=== PATIENT | male | born 1965 | race Caucasian/White ===

== ENCOUNTER → 2016-11-08 | Day surgery (SDC) | payer SELFPAY ==
[~2016-11-08] VITALS: Ht 172.7 cm; Wt 94.8 kg
[2016-11-08 08:02] LABS: HCT 41.8 % (42.0-52.0); HGB 15.2 g/dl (13.2-18.0); MCH 29.5 pg (25.0-31.0); MCHC 36.4 g/dL (32.0-36.0); MCV 81.2 fL (78.0-100.0); MPV 9.1 fL (6.0-9.5); RBC 5.15 M/uL (4.70-6.00); RDW 13.1 % (11.5-14.0); WBC 4.5 K/uL (4.0-10.5)
[2016-11-08 08:17] LABS: ALBUMIN 4.3 g/dL (3.5-5.0); BILIRUBIN - TOTAL 2.4 mg/dL (0.1-1.0); CREATININE 1.3 mg/dL (0.7-1.2); POTASSIUM 3.5 mmol/L (3.5-5.1); TOTAL PROTEIN 7.3 g/dL (6.4-8.3)
== END | disposition home or self-care (01) ==
LOC: FAS 07:27
PROVIDERS: Surgery
DX: Z12.11 Encounter for screening for malignant neoplasm of colon (principal); K21.9 Gastro-esophageal reflux disease without esophagitis; M19.90 Unspecified osteoarthritis, unspecified site; I10 Essential (primary) hypertension; E78.5 Hyperlipidemia, unspecified; J45.909 Unspecified asthma, uncomplicated; E78.00 Pure hypercholesterolemia, unspecified; Z90.49 Acquired absence of other specified parts of digestive tract; Z79.899 Other long term (current) drug therapy; Z98.890 Other specified postprocedural states
CPT/HCPCS: 36415; 80053; J2704